=== PATIENT | male | born 1985 | race Two or more races ===

== ENCOUNTER 2024-04-23 23:28 | Emergency (ER) | payer OTHER ==
[~2024-04-23] VITALS: Ht 182.9 cm; Wt 108.9 kg
[2024-04-24] MEDS ORDERED: TRAMADOL HCL 50 MG TABLET PO ONE (00:30)
[2024-04-24] MEDS ORDERED: KETOROLAC TROMETHAMINE 60 MG VIAL IM ONE (00:30)
[2024-04-24] MEDS ORDERED: DICLOFENAC SODI75 MG PO (01:08)
== END 2024-04-24 01:54 | disposition home or self-care (01) ==
LOC: ER 23:29
DX: M12.571 Traumatic arthropathy, right ankle and foot (principal); T14.90XS Injury, unspecified, sequela; V00-Y99 External causes of morbidity